=== PATIENT | female | born 1960 | race Caucasian/White ===

== ENCOUNTER 2017-02-14 23:25 | Emergency (ER) | payer OTHER ==
[2017-02-14 23:47] VITALS: TEMP 97.9; BMI 23.4
[2017-02-14 23:59] LABS: URINE APPEARANCE CLEAR; URINE BILIRUBIN NEGATIVE (NEGATIVE); URINE COLOR LTYELLOW; URINE GLUCOSE (UA) NEGATIVE (NEGATIVE); URINE KETONE NEGATIVE (NEGATIVE); URINE NITRITE NEGATIVE (NEGATIVE); URINE PROTEIN NEGATIVE (NEGATIVE); URINE UROBILINOGEN NEGATIVE E.U./dl (0.2-1.0)
[2017-02-15] LABS: URINE BLOOD 2+ (NEGATIVE)
[2017-02-15 00:01] LABS: URINE LEUK ESTERASE TRACE (NEGATIVE)
[2017-02-15 00:16] LABS: URINE MUCUS MANY; URINE RBC 14 /hpf (0-3); URINE WBC 3 /hpf (3-5)
[2017-02-15] MEDS ORDERED: CEPHALEXIN MONOHYDRATE 500 MG CAPSULE (UD) PO ONE ×2 (01:31→04:30)
[2017-02-15] MEDS ORDERED: PHENAZOPYRIDINE HCL 100 MG TABLET (FP) PO ONE ×2 (01:31→04:30)
--- NOTE | 2017-02-15 01:38 | PDOC ---
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 Patient states for the past 15 days experiencing burning, pain, and urinary frequency w/ associated bilateral back pain. Patient denies n/v/d, fever, CP, diff breathing , vaginal bleeding, discharge, or any other complaints at this time. Timing/Duration: reports: getting worse Quality: reports: moderate Abdominal Pain Onset Location: reports: suprapubic Pain Radiation: reports: back Activities at Onset: reports: no specific activity Treatment Prior to Arrive: worse with: analgesics, antacids, cold pack, heat, laxative, enema, other Aggravating Factors: worse with: None, Defecation, Eating, Emotional upset, Exertion, Rosa, Movement, Voiding, Change in position Alleviating Factors: worse with: None, Belching, Shallow Breathing, Defecation, Eating, Holding Breath, Passing Gas, Change in Position, Rest, Voiding, Vomiting Past History - Travel Traveled outside of the country in the last 30 days: No Close contact w/someone who was outside of country & ill: No - Past Medical History Allergies/Adverse Reactions: Allergies Allergy/AdvReac Type Severity Reaction Status Date / Time shellfish Allergy Unknown Uncoded 02/14/17 23:47 Home Medications: Ambulatory Orders Cephalexin Monohydrate [Keflex -] 500 mg PO BID #20 capsule 02/15/17 GI Disorders: Yes (status post bile duct stent for retained stone, in April 2012) Suicide Attempt (Hx): No - Surgical History Cholecystectomy: Yes (4 years ago) - Reproductive History Is Patient Now?: No - Psycho/Social/Smoking Cessation Hx Anxiety: No Suicidal Ideation: No Smoking Status: No Smoking History: Never smoked Have you smoked in the past 12 months: No Number of Cigarettes Smoked Daily: 0 Information on smoking cessation initiated: No Hx Alcohol Use: No Drug/Substance Use Hx: No Substance Use Type: None Hx Substance Use Treatment: No Abd/GI Specific PMHX - Complaint Specific PMHX Colitis: No Diverticulitis: No Gall Bladder Disease: No GERD: No Hepatitis: No Irritable Bowel Synd (IBS): No Pancreatitis: No GI Ulcer Disease: No Review of Systems - Review of Systems Able to Perform ROS?: Yes Is the patient limited Greenlandic proficient: Yes Constitutional: No: Chills, Fever Respiratory: No: Cough, Shortness of Breath, Stridor, Wheezing Cardiac (ROS): No: Chest Pain, Lightheadedness, Palpitations, Chest Tightness ABD/GI: Yes: Abdominal cramping (Lower abd-pelvic pain). No: Diarrhea, Nausea, Poor Appetite, Poor Fluid Intake, Vomiting : Yes: Burning, Dysuria. No: Discharge, Flank Pain, Hematuria Musculoskeletal: Yes: Back Pain All Other Systems: Reviewed and Negative *Physical Exam - Vital Signs Last Vital Signs Temp Pulse Resp BP Pulse Ox 97.9 F 82 20 119/76 98 02/14/17 23:45 02/14/17 23:45 02/14/17 23:45 02/14/17 23:45 02/14/17 23:45 - Physical Exam General Appearance: Yes: Nourished, Appropriately Dressed. No: Apparent Distress, Mild Distress, Moderate Distress, Severe Distress Respiratory/Chest: positive: Lungs Clear, Normal Breath Sounds. negative: Respiratory Distress, Accessory Muscle Use, Labored Respiration, Rapid RR Cardiovascular: positive: Regular Rhythm, Regular Rate. negative: Edema, JVD Gastrointestinal/Abdominal: positive: Normal Bowel Sounds, Tender, Soft, Tenderness (Lower abd- pelvic region w/o rebound, guarding or murphys sign.). negative: Distended, Guarding, Rebound Musculoskeletal: positive: Normal Inspection. negative: CVA Tenderness Extremity: positive: Normal Capillary Refill, Normal Inspection, Normal Range of Motion Integumentary: positive: Normal Color, Dry, Warm Neurologic: positive: bander and cellophaner machine helper II-XII NML intact, Fully Oriented, Alert, Normal Mood/ Affect, Motor Strength / ED Treatment Course - LABORATORY CBC & Chemistry Diagram: 02/15/17 01:43 02/15/17 01:43 - ADDITIONAL ORDERS Additional order review: Laboratory Results 02/14/17 23:47 Urine Color Ltyellow Urine Appearance Clear Urine pH 6.0 Ur Specific [place] 1.018 Urine Protein Negative Urine Glucose (UA) Negative Urine Ketones Negative Urine Blood 2+ H Urine Nitrite Negative Urine Bilirubin Negative Urine Urobilinogen Negative Ur Leukocyte Esterase Trace H Urine RBC 14 Urine WBC 3 Ur Epithelial Cells Rare Urine Mucus Many *DC/Admit/Observation/Transfer Diagnosis at time of Disposition: Urinary tract infection Qualifiers: Urinary tract infection type: urethritis Qualified Code(s): N34.2 - Other urethritis - Discharge Dispostion Disposition: HOME Condition at time of disposition: Stable Admit: No - Prescriptions Prescriptions: Cephalexin Monohydrate [Keflex -] 500 mg PO BID #20 capsule - Patient Instructions Printed Discharge Instructions: DI for Urinary Tract Infection (UTI) Additional Instructions: Dillan un seguimiento con osorio proveedor de atencin primaria esta semana para benjamin evaluacin ms detallada. Ken[place] los medicamentos segn lo prescrito. Se le thomas diagnosticado benjamin infeccin del tracto urinario. Karla kt agua, y pruebe el vaso lleno de jugo de arndano. Regresar si los sntomas empeoran o cualquier inquietud para benjamin evaluacin posterior. Follow up with your primary care provider this week for further evaluation. Take medications as prescribed. You have been diagnosed with urinary tract infection. Drink plenty water, and try glass full of cranberry juice. Return if symptoms worsen or any concerns for further evaluation. Print Language: GUATEMALAN
[2017-02-15 02:01] LABS: BASOPHIL 0.6 % (0-2.0); EOSINOPHIL 2.4 % (0-4.5); MCH 31.6 pg (25.7-33.7); MCHC 34.1 g/dl (32.0-36.0); MEAN CELL VOLUME 92.9 fl (80-96); MEAN PLT VOLUME 7.4 fl (7.5-11.1); NEUTROPHILS 57.4 % (42.8-82.8); PLATELET COUNT 269 K/MM3 (134-434); RDW 13.5 % (11.6-15.6)
[2017-02-15 02:13] LABS: ALBUMIN 4.1 g/dl (3.4-5.0); ALK PHOS 97 U/L (45-117); ANION GAP 9 (8-16); BILIRUBIN,TOTAL 0.4 mg/dL (0.2-1.0); CALCIUM 9.4 mg/dL (8.5-10.1); CO2 31 mmol/L (21-32); COCKROFT - GAULT 109.2335; CREATININE 0.5 mg/dL (0.55-1.02); GLUCOSE,RANDOM 84 mg/dL (74-106); SGOT/AST 17 U/L (15-37); SGPT/ALT 27 U/L (12-78); TOT PROT 7.4 g/dl (6.4-8.2)
[2017-02-15] MEDS ORDERED: CEPHALEXIN MONOHYDRATE 250 MG CAPSULE (FP) ONE (04:35)
[2017-02-15] MEDS ORDERED: PHENAZOPYRIDINE HCL 100 MG TABLET (FP) ONE (04:35)
[2017-02-15 04:44] VITALS: BP 120/74; PULSE 80
== END 2017-02-15 04:45 | disposition home or self-care (01) ==
LOC: JER 23:25
DX: N34.2 Other urethritis (principal)
CPT/HCPCS: 36415; 74176-TC; 80053; 81003; 81015; 85025; 87086; 99282-25

== ENCOUNTER 2017-04-05 18:42 | Emergency (ER) | payer OTHER ==
[2017-04-05 18:49] VITALS: BP 151/90; PULSE 72; TEMP 98; BMI 28.3
[2017-04-05 20:44] LABS: URINE APPEARANCE CLEAR; URINE BILIRUBIN NEGATIVE (NEGATIVE); URINE COLOR STRAW; URINE GLUCOSE (UA) NEGATIVE (NEGATIVE); URINE KETONE NEGATIVE (NEGATIVE); URINE NITRITE NEGATIVE (NEGATIVE); URINE PROTEIN NEGATIVE (NEGATIVE); URINE UROBILINOGEN NEGATIVE E.U./dl (0.2-1.0)
[2017-04-05 20:46] LABS: URINE BLOOD 1+ (NEGATIVE); URINE LEUK ESTERASE TRACE (NEGATIVE)
[2017-04-05 20:48] LABS: URINE MUCUS RARE; URINE RBC 3 /hpf (0-3); URINE WBC 4 /hpf (3-5)
[2017-04-05 21:13] LABS: BASOPHIL 0.7 % (0-2.0); EOSINOPHIL 1.4 % (0-4.5); MCH 31.6 pg (25.7-33.7); MCHC 33.1 g/dl (32.0-36.0); MEAN CELL VOLUME 95.5 fl (80-96); MEAN PLT VOLUME 7.3 fl (7.5-11.1); NEUTROPHILS 59.9 % (42.8-82.8); PLATELET COUNT 262 K/MM3 (134-434); RDW 14.1 % (11.6-15.6); WHITE BLOOD COUNT 5.4 K/mm3 (4.0-10.0)
--- NOTE | 2017-04-05 21:14 | PDOC ---
History of Present Illness <Rubi Lemos - Last Filed: 04/05/17 22:41> - History of Present Illness Initial Comments: 04/05/17 23:46 Patient is a 56 year old female with no significant medical hx who is presenting to the ED with complaint of increased urination. The patient states her increased frequency has been intermittent for the past two months. She also is complaining of pelvic pain and cold feet. The patient was here last month for the same complaint and discharged on Keflex for mild UTI. Patient also received an abdomen/pelvis CT at that time which was negative for abnormalities. She denies any hematuria, dysuria, vaginal bleeding, discharge, nausea, vomiting, fevers, chills, or diarrhea. History was obtained using a roadway technician phone. Surgical Hx: cholecystectomy, bile duct stent Allergies: shellfish <Sushila Edward - Last Filed: 04/05/17 23:55> - General Chief Complaint: Pain, Acute Stated Complaint: URINARY PROBLEM Time Seen by Provider: 04/05/17 19:00 Past History - Past Medical History GI Disorders: Yes (status post bile duct stent for retained stone, in April 2012) Suicide Attempt (Hx): No - Surgical History Cholecystectomy: Yes (4 years ago) - Psycho/Social/Smoking Cessation Hx Anxiety: No Suicidal Ideation: No Smoking Status: No Smoking History: Never smoked Have you smoked in the past 12 months: No Number of Cigarettes Smoked Daily: 0 Information on smoking cessation initiated: No Hx Alcohol Use: No Drug/Substance Use Hx: No Substance Use Type: None Hx Substance Use Treatment: No <Rubi Lemos - Last Filed: 04/05/17 22:41> <Sushila Edward - Last Filed: 04/05/17 23:55> - Past Medical History Allergies/Adverse Reactions: Allergies Allergy/AdvReac Type Severity Reaction Status Date / Time shellfish Allergy Unknown Uncoded 04/05/17 18:46 Home Medications: Ambulatory Orders Nitrofurantoin Macrocrystal [Macrodantin -] 100 mg PO BID #14 capsule 04/05/17 Abd/GI Specific PMHX - Complaint Specific PMHX Colitis: No Diverticulitis: No Gall Bladder Disease: No GERD: No Hepatitis: No Irritable Bowel Synd (IBS): No Pancreatitis: No GI Ulcer Disease: No <Rubi Lemos - Last Filed: 04/05/17 22:41> Review of Systems - Review of Systems Comments:: 04/05/17 23:50 CONSTITUTIONAL: Absent: fever, chills, diaphoresis, generalized weakness, malaise, loss of appetite HEENT: Absent: rhinorrhea, nasal congestion, throat pain, throat swelling, difficulty swallowing, mouth swelling, ear pain, eye pain, visual changes CARDIOVASCULAR: Absent: chest pain, syncope, palpitations, irregular heart rate, lightheadedness , peripheral edema RESPIRATORY: Absent: cough, shortness of breath, dyspnea with exertion, orthopnea, wheezing, stridor, hemoptysis GASTROINTESTINAL: Present: pelvic pain Absent: abdominal distension, nausea, vomiting, diarrhea, constipation, melena, hematochezia GENITOURINARY: Present: frequency Absent: dysuria, urgency, hesitancy, hematuria, flank pain, genital pain MUSCULOSKELETAL: Present: cold feet Absent: myalgia, arthralgia, joint swelling SKIN: Absent: rash, itching, pallor HEMATOLOGIC/IMMUNOLOGIC: Absent: easy bleeding, easy bruising, lymphadenopathy, frequent infections ENDOCRINE: Absent: unexplained weight gain, unexplained weight loss, heat intolerance, cold intolerance NEUROLOGIC: Absent: headache, focal weakness or paresthesia, dizziness, unsteady gait, seizure, mental status changes, bladder or bowel incontinence. PSYCHIATRIC: Absent: anxiety, depression, suicidal or homicidal ideation, hallucinations <Sushila Edward - Last Filed: 04/05/17 23:55> *Physical Exam - Vital Signs Last Vital Signs Temp Pulse Resp BP Pulse Ox 98.0 F 72 18 151/90 100 04/05/17 18:46 04/05/17 18:46 04/05/17 18:46 04/05/17 18:46 04/05/17 18:46 <Rubi Lemos - Last Filed: 04/05/17 22:41> - Vital Signs Last Vital Signs Temp Pulse Resp BP Pulse Ox 98.0 F 72 18 151/90 100 04/05/17 18:46 04/05/17 18:46 04/05/17 18:46 04/05/17 18:46 04/05/17 18:46 - Physical Exam Comments: 04/05/17 23:51 GENERAL: Well developed, well nourished. Awake and alert. No acute distress. HEENT: Normocephalic, atraumatic. PERRLA, EOMI. No conjunctival pallor. Sclera are non- icteric. Moist mucous membranes. Oropharynx is clear. NECK: Supple. Full ROM. No JVD. Carotid pulses 2+ and symmetric, without bruits. No thyromegaly. No lymphadenopathy. CARDIOVASCULAR: Regular rate and rhythm. No murmurs, rubs, or gallops. Distal pulses are 2+ and symmetric. PULMONARY: No evidence of respiratory distress. Lungs clear to auscultation bilaterally. No wheezing, rales or rhonchi. ABDOMINAL: Soft. Non-tender. Non-distended. No rebound or guarding. No organomegaly. Normoactive bowel sounds. MUSCULOSKELETAL: Normal range of motion at all joints. No bony deformities or tenderness. No CVA tenderness. EXTREMITIES: No cyanosis. No clubbing. No edema. No calf tenderness. SKIN: Warm and dry. Normal capillary refill. No rashes. No jaundice. NEUROLOGICAL: Alert, awake, appropriate. Cranial nerves 2-12 intact. Normal speech. Gait is normal without ataxia. PSYCHIATRIC: Cooperative. Good eye contact. Appropriate mood and affect. <Sushila Edward - Last Filed: 04/05/17 23:55> ED Treatment Course - LABORATORY CBC & Chemistry Diagram: 04/05/17 20:44 04/05/17 20:44 - ADDITIONAL ORDERS Additional order review: Laboratory Results 04/05/17 20:37 Urine Color Straw Urine Appearance Clear Urine pH 6.0 Urine Protein Negative Urine Glucose (UA) Negative Urine Ketones Negative Urine Blood 1+ H Urine Nitrite Negative Urine Bilirubin Negative Urine Urobilinogen Negative Ur Leukocyte Esterase Trace H Urine RBC 3 Urine WBC 4 Ur Epithelial Cells Rare Urine Mucus Rare <Rubi Lemos - Last Filed: 04/05/17 22:41> - LABORATORY CBC & Chemistry Diagram: 04/05/17 20:44 04/05/17 20:44 - ADDITIONAL ORDERS Additional order review: Laboratory Results 04/05/17 04/05/17 20:44 20:37 Sodium 141 Potassium 3.4 L Chloride 104 Carbon Dioxide 30 Anion Gap 7 L BUN 18 D Creatinine 0.5 L Creat Clearance w eGFR > 60 Random Glucose 86 Calcium 9.6 Total Bilirubin 0.3 D AST 18 ALT 27 Alkaline Phosphatase 86 Total Protein 7.3 Albumin 4.1 Urine Color Straw Urine Appearance Clear Urine pH 6.0 Ur Specific [place] <= 1.005 Urine Protein Negative Urine Glucose (UA) Negative Urine Ketones Negative Urine Blood 1+ H Urine Nitrite Negative Urine Bilirubin Negative Urine Urobilinogen Negative Ur Leukocyte Esterase Trace H Urine RBC 3 Urine WBC 4 Ur Epithelial Cells Rare Urine Mucus Rare 04/05/17 20:44 RBC 4.05 MCV 95.5 MCHC 33.1 RDW 14.1 MPV 7.3 L Neutrophils % 59.9 Lymphocytes % 32.8 Monocytes % 5.2 Eosinophils % 1.4 Basophils % 0.7 - RADIOLOGY Radiograph Interpretation: 04/05/17 23:54 Etl Lead: (lavon) Report Date: 04/05/2017 21:35:00 Report Status: Preliminary Begin of Report Content Referring Physician: Rubi Lemos Patient Name: Alis Mariee THIS IS A PRELIMINARY REPORT FROM IMAGING PATIENT EDUCATOR IMAGES: 31 EXAM DATE AND TIME: 2017-04-05 21:35:46.0 EXAM: ULTRASOUND PELVIS, COMPLETE AND TRANSVAGINAL ULTRASOUND Ovaries not seen, probably obscured by prominent peristalsing bowel loops. Torsion cannot be excluded; consider follow-up if there is continued clinical concern. No obvious adnexal masses. No free fluid in cul-de-sac. 1.0 cm uterine fibroid. Endometrial stripe complex 3 mm thick. Trace fluid in endometrial cavity. Bladder not well seen. THIS DOCUMENT HAS BEEN ELECTRONICALLY SIGNED Desiree Lomeli M.D. 04/05/2017 22:40 YVETTE Clark Please call Imaging Machine Applicator Cementer [phone] ([phone]) with questions. End of Report Content - Medications Given in the ED: ED Medications Discontinued Medications Generic Name Dose Route Start Last Admin Trade Name Freq PRN Reason Stop Dose Admin Nitrofurantoin Macrocrystals 100 mg 04/05/17 22:45 04/05/17 22:46 Macrodantin - PO 100 mg ONCE MARILYN Administration Phenazopyridine HCl 200 mg 04/05/17 22:41 04/05/17 22:46 Pyridium - PO 04/05/17 22:42 200 mg ONCE ONE Administration <Sushila Edward - Last Filed: 04/05/17 23:55> *DC/Admit/Observation/Transfer <Rubi Lemos - Last Filed: 04/05/17 22:41> - Attestations Scribe Attestion: 04/05/17 23:52 Documentation prepared by Sushila Edward, acting as medical screener for Rubi Lemos MD <Sushila Edward - Last Filed: 04/05/17 23:55> Diagnosis at time of Disposition: Dysuria - Discharge Dispostion Disposition: HOME Condition at time of disposition: Stable - Prescriptions Prescriptions: Nitrofurantoin Macrocrystal [Macrodantin -] 100 mg PO BID #14 capsule - Referrals Referrals: Claudia Oliveros MD [Staff Physician] - - Patient Instructions Printed Discharge Instructions: DI for Dysuria -- Adult Additional Instructions: please coal picker your antibiotics at your pharmacy follow up with your infant caregiver Print Language: UZBEK
[2017-04-05 21:36] LABS: ALBUMIN 4.1 g/dl (3.4-5.0); ANION GAP 7 (8-16); BILIRUBIN,TOTAL 0.3 mg/dL (0.2-1.0); CALCIUM 9.6 mg/dL (8.5-10.1); CO2 30 mmol/L (21-32); COCKROFT - GAULT 131.9965; CREATININE 0.5 mg/dL (0.55-1.02); GLUCOSE,RANDOM 86 mg/dL (74-106); SGOT/AST 18 U/L (15-37); SGPT/ALT 27 U/L (12-78); TOT PROT 7.3 g/dl (6.4-8.2)
[2017-04-05 21:37] LABS: ALK PHOS 86 U/L (45-117)
[2017-04-05] MEDS ORDERED: PHENAZOPYRIDINE HCL 100 MG TABLET (FP) PO ONE (22:41)
[2017-04-05] MEDS ORDERED: PHENAZOPYRIDINE HCL 100 MG TABLET (FP) ONE (22:43)
[2017-04-05] MEDS ORDERED: NITROFURANTOIN MACROCRYSTAL 50 MG CAPSULE (FP) ONE (22:43)
[2017-04-05] MEDS ORDERED: NITROFURANTOIN MACROCRYSTAL 50 MG CAPSULE (FP) PO SCH (22:45)
== END 2017-04-05 22:54 | disposition home or self-care (01) ==
LOC: JER 18:42
DX: R30.0 Dysuria (principal)
CPT/HCPCS: 36415; 76830-TC; 80053; 81003; 81015; 85025; 87086; 99284-25

== ENCOUNTER 2017-07-10 01:21 | Emergency (ER) | payer OTHER ==
[2017-07-10 01:52] VITALS: BP 146/96; PULSE 72; TEMP 98.4; BMI 25.9
[2017-07-10 02:49] LABS: URINE APPEARANCE CLEAR; URINE BILIRUBIN NEGATIVE (NEGATIVE); URINE BLOOD TRACE-LYSE (NEGATIVE); URINE COLOR LT. YELLOW; URINE GLUCOSE (UA) NEGATIVE (NEGATIVE); URINE KETONE NEGATIVE (NEGATIVE); URINE NITRITE NEGATIVE (NEGATIVE); URINE PROTEIN NEGATIVE (NEGATIVE); URINE UROBILINOGEN 0.2 mg/dL (0.2-1.0)
--- NOTE | 2017-07-10 02:53 | PDOC ---
History of Present Illness - General History Source: Patient Exam Limitations: No Limitations - History of Present Illness Initial Comments: 07/10/17 04:15 The patient is a 57 year old female, with no significant past medical history, who presents to the emergency room complaining of 2 days of dysuria, urinary frequency and diffuse lower abdominal cramping. She notes that these symptoms are similar to those she's experienced in the past when she had a UTI. Denies fever, chills, nausea, vomiting. Denies flank pain. Allergies: shellfish <George Wolfssica - Last Filed: 07/10/17 04:15> <Juliane Hobbs - Last Filed: 07/10/17 06:10> - General Chief Complaint: Pain Stated Complaint: ABD PAIN Past History <Stephanie Wolf - Last Filed: 07/10/17 04:15> - Past Medical History GI Disorders: Yes (status post bile duct stent for retained stone, in April 2012) Suicide Attempt (Hx): No - Surgical History Cholecystectomy: Yes (4 years ago) - Psycho/Social/Smoking Cessation Hx Anxiety: No Suicidal Ideation: No Smoking Status: No Smoking History: Never smoked Have you smoked in the past 12 months: No Number of Cigarettes Smoked Daily: 0 Hx Alcohol Use: No Drug/Substance Use Hx: No Substance Use Type: None Hx Substance Use Treatment: No <Juliane Hobbs - Last Filed: 07/10/17 06:10> - Past Medical History Allergies/Adverse Reactions: Allergies Allergy/AdvReac Type Severity Reaction Status Date / Time shellfish derived Allergy Unknown Verified 07/10/17 04:15 shellfish Allergy Unknown Uncoded 07/10/17 01:29 Home Medications: Ambulatory Orders Ibuprofen [Motrin -] 600 mg PO TID #30 tablet 07/10/17 Nitrofurantoin Monohyd/M-Cryst [Macrobid -] 100 mg PO BID #14 capsule 07/10/17 Review of Systems - Review of Systems Able to Perform ROS?: Yes Comments:: 07/10/17 04:25 GENERAL/CONSTITUTIONAL: No fever or chills. No weakness. HEAD, EYES, EARS, NOSE AND THROAT: No change in vision. No ear pain or discharge. No sore throat. CARDIOVASCULAR: No chest pain or shortness of breath. RESPIRATORY: No cough, wheezing, or hemoptysis. GASTROINTESTINAL: +diffuse lower abdominal cramping. No nausea, vomiting, diarrhea or constipation. GENITOURINARY: +dysuria, +frequency MUSCULOSKELETAL: No joint or muscle swelling or pain. No neck or back pain. SKIN: No rash NEUROLOGIC: No headache, vertigo, loss of consciousness, or change in strength/ sensation. ENDOCRINE: No increased thirst. No abnormal weight change. HEMATOLOGIC/LYMPHATIC: No anemia, easy bleeding, or history of blood clots. ALLERGIC/IMMUNOLOGIC: No hives or skin allergy. <Stephanie Wolf - Last Filed: 07/10/17 04:15> *Physical Exam - Vital Signs Last Vital Signs Temp Pulse Resp BP Pulse Ox 98.4 F 72 18 146/96 99 07/10/17 01:07/10/17 01:07/10/17 01:07/10/17 01:07/10/17 01:26 - Physical Exam Comments: 07/10/17 04:25 GENERAL: Awake, alert, and fully oriented, in no acute distress LUNGS: Breath sounds equal, clear to auscultation bilaterally. No wheezes, and no crackles HEART: Regular rate and rhythm, normal S1 and S2, no murmurs, rubs or gallops ABDOMEN: +minimal suprapubic tenderness. No flank pain. Soft, nontender, normoactive bowel sounds. No guarding, no rebound. No masses EXTREMITIES: Normal range of motion, no edema. No clubbing or cyanosis. No cords, erythema, or tenderness NEUROLOGICAL: Cranial nerves II through XII grossly intact. Normal speech, normal gait SKIN: Warm, Dry, normal turgor, no rashes or lesions noted. <Stephanie Wolf - Last Filed: 07/10/17 04:15> - Vital Signs Last Vital Signs Temp Pulse Resp BP Pulse Ox 98.4 F 72 18 146/96 99 07/10/17 01:07/10/17 01:07/10/17 01:07/10/17 01:07/10/17 01:26 <Juliane Hobbs - Last Filed: 07/10/17 06:10> ED Treatment Course - ADDITIONAL ORDERS Additional order review: Laboratory Results 07/10/17 02:40 Urine Color Lt. yellow Urine Appearance Clear Urine pH 7.0 Urine Protein Negative Urine Glucose (UA) Negative Urine Ketones Negative Urine Blood Trace-lyse Urine Nitrite Negative Urine Bilirubin Negative Urine Urobilinogen 0.2 Ur Leukocyte Esterase 1+ H Urine RBC 2 Urine WBC 6 Ur Epithelial Cells Rare Urine Bacteria Rare Urine Mucus Rare <Stephanie Wolf - Last Filed: 07/10/17 04:15> Medical Decision Making - Medical Decision Making 07/10/17 06:09 Pt comes with a UTI; she has had this type of dysuria before. SHe was treated with macrobid and pyridium in the ER; home with macrobid and motrin. Follow with PMD. <Juliane Hobbs - Last Filed: 07/10/17 06:10> *DC/Admit/Observation/Transfer - Attestations Scribe Attestion: 07/10/17 04:26 Documentation prepared by EMMANUEL Alba, acting as medical assembly for Juliane Hobbs MD. <Stephanie Wolf - Last Filed: 07/10/17 04:15> - Discharge Dispostion Admit: No <Juliane Hobbs - Last Filed: 07/10/17 06:10> Diagnosis at time of Disposition: Urinary tract infection - Discharge Dispostion Disposition: HOME Condition at time of disposition: Stable - Prescriptions Prescriptions: Nitrofurantoin Monohyd/M-Cryst [Macrobid -] 100 mg PO BID #14 capsule Ibuprofen [Motrin -] 600 mg PO TID #30 tablet - Referrals - Patient Instructions Printed Discharge Instructions: Urinary Tract Infection Print Language: VENEZUELAN
[2017-07-10 02:57] LABS: URINE LEUK ESTERASE 1+ (NEGATIVE)
[2017-07-10 03:06] LABS: URINE BACTERIA RARE /hpf (NONE SEEN); URINE MUCUS RARE; URINE RBC 2 /hpf (0-3); URINE WBC 6 /hpf (3-5)
[2017-07-10] MEDS ORDERED: PHENAZOPYRIDINE HCL 100 MG TABLET (FP) PO ONE (04:11)
[2017-07-10] MEDS ORDERED: NITROFURANTOIN MACROCRYSTAL 50 MG CAPSULE (FP) PO ONE (04:15)
[2017-07-10] MEDS ORDERED: NITROFURANTOIN MACROCRYSTAL 50 MG CAPSULE (FP) PO SCH (04:15)
== END 2017-07-10 04:17 | disposition home or self-care (01) ==
LOC: JER 01:21
DX: N39.0 Urinary tract infection, site not specified (principal)
CPT/HCPCS: 81003; 81015; 87086; 99282-25

== ENCOUNTER 2018-04-10 20:10 | Emergency (ER) | payer OTHER ==
[2018-04-10 20:24] VITALS: BP 163/98; PULSE 70; TEMP 98.5; BMI 26.4
[2018-04-10 20:58] LABS: URINE APPEARANCE CLEAR; URINE BILIRUBIN NEGATIVE (<2.0 mg/dL); URINE BLOOD 1+ (NEGATIVE); URINE COLOR COLORLESS; URINE GLUCOSE (UA) NEGATIVE (NEGATIVE); URINE KETONE NEGATIVE (NEGATIVE); URINE LEUK ESTERASE 1+ (NEGATIVE); URINE NITRITE NEGATIVE (NEGATIVE); URINE PROTEIN NEGATIVE (NEGATIVE); URINE UROBILINOGEN NEGATIVE mg/dL (0.2-1.0)
[2018-04-10 21:05] LABS: EPI CELLS RARE /HPF (FEW); URINE BACTERIA RARE /hpf (NONE SEEN)
--- NOTE | 2018-04-10 21:07 | PDOC ---
History of Present Illness - General Chief Complaint: Urinary Problem Stated Complaint: UTI Time Seen by Provider: 04/10/18 20:24 History Source: Patient Exam Limitations: No Limitations - History of Present Illness Initial Comments: 04/10/18 21:27 Patient is a 57-year-old female who presents emergency department stating she has a urinary tract infection. Patient states she feels burning when she eats and pain when she peaceful last 2 days. States she is also going more frequently. Denies hematuria. States she has a little back pain as well. Denies fevers, chills, nausea, vomiting and diarrhea. Past History - Travel Traveled outside of the country in the last 30 days: No Close contact w/someone who was outside of country & ill: No - Past Medical History Allergies/Adverse Reactions: Allergies Allergy/AdvReac Type Severity Reaction Status Date / Time shellfish derived Allergy Unknown Verified 07/10/17 04:15 shellfish Allergy Unknown Uncoded 07/10/17 01:29 Home Medications: Ambulatory Orders Cephalexin Monohydrate [Keflex -] 500 mg PO BID #14 capsule 04/10/18 Ibuprofen [Motrin -] 600 mg PO TID #21 tablet 04/10/18 GI Disorders: Yes (status post bile duct stent for retained stone, in April 2012) - Surgical History Cholecystectomy: Yes (4 years ago) - Suicide/Smoking/Psychosocial Hx Smoking Status: No Smoking History: Never smoked Have you smoked in the past 12 months: No Number of Cigarettes Smoked Daily: 0 Hx Alcohol Use: No Drug/Substance Use Hx: No Substance Use Type: None Hx Substance Use Treatment: No Review of Systems - Review of Systems Able to Perform ROS?: Yes Comments:: 04/10/18 21:28 CONSTITUTIONAL: Absent: fever, chills, diaphoresis, generalized weakness, malaise, loss of appetite GASTROINTESTINAL: Present: abdominal pain Absent: abdominal pain, abdominal distension, nausea, vomiting, diarrhea, constipation, melena, hematochezia GENITOURINARY: Present: dysuria, frequency, urgency Absent: hesitancy, hematuria, flank pain, genital pain MUSCULOSKELETAL: Absent: myalgia, arthralgia, joint swelling NEUROLOGIC: Absent: headache, focal weakness or paresthesias, dizziness, unsteady gait, seizure, mental status changes, bladder or bowel incontinence Is the patient limited Tuvaluan proficient: No *Physical Exam - Vital Signs Last Vital Signs Temp Pulse Resp BP Pulse Ox 98.5 F 70 20 163/98 97 04/10/18 20:22 04/10/18 20:22 04/10/18 20:22 04/10/18 20:22 04/10/18 20:22 - Physical Exam Comments: 04/10/18 21:29 GENERAL: Well developed, well nourished. Awake and alert. No acute distress. NECK: Supple. Full ROM. No JVD. Carotid pulses 2+ and symmetric, without bruits. No thyromegaly. No lymphadenopathy. ABDOMINAL: TTP of the suprapubic region. Soft. Non-distended. No rebound or guarding. No organomegaly. Normoactive bowel sounds. CVA tenderness to the R. SKIN: Warm and dry. Normal capillary refill. No rashes. No jaundice. NEUROLOGICAL: Alert, awake, appropriate. Cranial nerves 2-12 intact. No deficits to light touch and temperature in face, upper extremities and lower extremities. No motor deficits in the in face, upper extremities and lower extremities. Normoreflexic in the upper and lower extremities. Normal speech. Toes are down- going bilaterally. Gait is normal without ataxia. ED Treatment Course - ADDITIONAL ORDERS Additional order review: Laboratory Results 04/10/18 20:30 Urine Color Colorless Urine Appearance Clear Urine pH 7.0 Ur Specific [place] 1.005 Urine Protein Negative Urine Glucose (UA) Negative Urine Ketones Negative Urine Blood 1+ H Urine Nitrite Negative Urine Bilirubin Negative Urine Urobilinogen Negative Ur Leukocyte Esterase 1+ H Urine WBC (Auto) 6 Urine RBC (Auto) 1 Ur Epithelial Cells Rare Urine Bacteria Rare Medical Decision Making - Medical Decision Making 04/10/18 21:30 Patient is a 57-year-old female who presents emergency Department with 2 days of urinary frequency, urgency and dysuria. Patient with slight CVA tenderness on the right. No fevers, nausea or vomiting. UA with +1 leukocytes. We will treat given the symptoms at this time. Return precautions given. Patient her symptoms discharge instructions and all questions were answered. *DC/Admit/Observation/Transfer Diagnosis at time of Disposition: Urinary tract infection Qualifiers: Urinary tract infection type: acute cystitis Hematuria presence: with hematuria Qualified Code(s): N30.01 - Acute cystitis with hematuria - Discharge Dispostion Disposition: HOME Condition at time of disposition: Good Decision to Admit order: No - Prescriptions Prescriptions: Cephalexin Monohydrate [Keflex -] 500 mg PO BID #14 capsule Ibuprofen [Motrin -] 600 mg PO TID #21 tablet - Referrals Referrals: Vitor Payne MD [Staff Physician] - - Patient Instructions Printed Discharge Instructions: DI for Urinary Tract Infection (UTI) Additional Instructions: You have a urinary tract infection. This caused by bacteria. Please drink plenty of fluids. Take your antibiotics as prescribed. Finish the entire dose even if you feel better. You may take Tylenol or Motrin as needed for pain Please follow up with your primary care doctor this week. Return to the emergency department if you have fevers, chills, nausea, vomiting , back pain, or have any changes in your symptoms. Usted tiene benjamin infeccin del tracto urinario. [place] causado por bacterias. Por favor sonia muchos lquidos. Wade farideh antibiticos segn lo prescrito. Termine toda la dosis incluso si se siente mejor. Puede connor Tylenol o Motrin segn sea necesario para el dolor Por favor, gosia un seguimiento con osorio mdico de atencin primaria esta semana. Regrese al departamento de emergencias si tiene fiebre, escalofros, nuseas, vmitos, dolor de espalda o tiene algn cambio en farideh sntomas. Print Language: LIBERIAN - Post Discharge Activity
[2018-04-10] MEDS ORDERED: CEPHALEXIN MONOHYDRATE 500 MG CAPSULE (UD) PO ONE (21:26)
[2018-04-10] MEDS ORDERED: CEPHALEXIN MONOHYDRATE 500 MG CAPSULE (UD) ONE (21:29)
== END 2018-04-10 21:35 | disposition home or self-care (01) ==
LOC: JERFT 20:10
DX: N30.01 Acute cystitis with hematuria (principal)
CPT/HCPCS: 81003; 81015; 87086; 99281-25

== ENCOUNTER 2018-08-01 07:42 | Emergency (ER) | payer OTHER ==
[2018-08-01 08:08] VITALS: BMI 26.4
--- NOTE | 2018-08-01 08:22 | PDOC ---
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 58 year old female with PMH HTN presents to ED for headache x2 weeks. She states her headache is located to her occiput, radiates to her neck, no aggravating factors, alleviated by motrin, intermittent, slowly progressing, feels similar to prior headaches. She states she gets headaches at least once a month. She denies fever, chills, nausea, vomiting, diarrhea, abdominal pain. Her pain is associated with bilateral arm/hand numbness and tingling, shocks down bilateral arms, phonophobia, photophobia, generalized weakness, upper back pain. She also complains of chest pain x2 weeks, occurring while walking, left sided, non-radiating, aggravated by exertion, relieved by resting, intermittent. She states her chest pain is associated with SOB. She also complains of cough, productive of "white saliva". She denies recent steroid use , history of malignancy, weight loss, IV drug use. PCP - none Allergies - NKDA Past History - Past Medical History Allergies/Adverse Reactions: Allergies Allergy/AdvReac Type Severity Reaction Status Date / Time shellfish derived Allergy Unknown Verified 07/10/17 04:15 shellfish Allergy Unknown Uncoded 07/10/17 01:29 Home Medications: Ambulatory Orders Azithromycin [Zithromax 250mg Tablets -] 250 mg PO UTDICT #6 tab 08/01/18 Ibuprofen [Motrin -] 600 mg PO PRN 08/01/18 COPD: No DVT: No Dementia: No GI Disorders: Yes (status post bile duct stent for retained stone, in April 2012) HTN: Yes Hypercholesterolemia: Yes (??) - Surgical History Cholecystectomy: Yes (4 years ago) - Suicide/Smoking/Psychosocial Hx Smoking Status: No Smoking History: Never smoked Have you smoked in the past 12 months: No Number of Cigarettes Smoked Daily: 0 Information on smoking cessation initiated: No Hx Alcohol Use: No Drug/Substance Use Hx: No Substance Use Type: None Hx Substance Use Treatment: No Review of Systems - Review of Systems Able to Perform ROS?: Yes Comments:: 08/01/18 09:27 General: admits to generalized weaknes. denies fever, chills, night sweats. HEENT: denies sore throat, rhinorrhea, ear pain. Heart: admits to chest pain. denies palpitations, syncope, lower extremity swelling, diaphoresis. Respiratory: admits to cough, SOB. denies sputum production, hematemesis. Abdomen: denies abdominal pain, nausea, vomiting, diarrhea, constipation, blood in stool. : denies dysuria, increased urinary frequency, hematuria, urinary incontinence , flank pain. Back: admits to back pain. Musculoskeletal: admits to bilateral arm pain, back pain. Neurological: admits to headache, photophobia, phonophobia. denies dizziness, numbness, tingling, weakness. Skin: denies rash, laceration, abrasion. *Physical Exam - Vital Signs Last Vital Signs Temp Pulse Resp BP Pulse Ox 99.4 F 75 16 138/84 98 08/01/18 08:05 08/01/18 08:05 08/01/18 08:05 08/01/18 08:05 08/01/18 08:05 - Physical Exam Comments: 08/01/18 09:29 Constitutional: Well-nourished, Well-developed, appearing stated age. HEENT: head is normocephalic, atraumatic. EOMI. PERRLA. Neck: supple. Full ROM. Spurling positive bilaterally. Lhermitte negative. decreased rotational movement secondary to pain. tenderness to palpation of bilateral lateral neck. Heart: regular rhythm. no murmurs, rubs or gallops. Lungs: clear to auscultation bilaterally. no crackles, rhonchi or wheezing. no stridor. Abdomen: soft, nontender. normal bowel sounds. no rebound, guarding, masses. Extremities: Peripheral pulses intact and equal. No lower extremity edema. full ROM to bilateral arm. Back: tenderness to palpation of bilateral upper back, scapular area and trapezium. Neurological: Alert. Oriented to person and place, not oriented to year (stated 1917 then 1987). CN2-12 intact. full video rental clerk strength bilaterally. decreased strength to upper extremities against resistance. decreased strength to lower extremities against resistance, right>left. Full sensation all extremities and bilateral face. Finger to nose normal. Gait: able to walk unassisted, will lean to the left, appears slightly off-balance. Psych: awake, alert, oriented x2 (see above). Follows commands. Pleasant. Answers questions appropriately, but slow to respond, requires further clarification multiple times. Heart Score/ECG Review - ECG Impressions Comment:: 08/01/18 09:49 Rate 73, regular rhythm, slight left axis, non-specific ST changes. ED Treatment Course - LABORATORY CBC & Chemistry Diagram: 08/01/18 09:35 08/01/18 09:35 Medical Decision Making - Medical Decision Making 08/01/18 09:44 58 year old female with PMH HTN presents to ED for headache x2 weeks. She states her headache is located to her occiput, radiates to her neck, no aggravating factors, alleviated by motrin, intermittent, slowly progressing, feels similar to prior headaches. She states she gets headaches at least once a month. She denies fever, chills, nausea, vomiting, diarrhea, abdominal pain. Her pain is associated with bilateral arm/hand numbness and tingling, shocks down bilateral arms, phonophobia, photophobia, generalized weakness, upper back pain. She also complains of chest pain x2 weeks, occurring while walking, left sided, non-radiating, aggravated by exertion, relieved by resting, intermittent. She states her chest pain is associated with SOB. She also complains of cough, productive of "white saliva". She denies recent steroid use , history of malignancy, weight loss, IV drug use. Initial Vital Signs Temp Pulse Resp BP Pulse Ox 99.4 F 75 16 138/84 98 08/01/18 08:05 08/01/18 08:05 08/01/18 08:05 08/01/18 08:05 08/01/18 08:05 Afebrile. No tachycardia. No hypotension. No hypoxia. Concern for cervical radiculopathy, arm pain reproducible with spurling positive bilaterally, arm pain described as "shock" like. Concern for neck muscle sprain, pain reproducible with rotation and palpation. Less likely, but also concerned for: cervical fracture, cervical cord compression. Pending CT neck and CT head. Concern for ACS, chest pain, exertional, hx HTN, lack of follow up care. Pending EKG, cardiac enzymes, CMP. Concern for urinary tract infection, slightly altered mental status, appears off balance. Pending UA/UC. -- 08/01/18 13:27 Cardiac - Cardiac enzymes negative - EKG non-specific ST changes Pulmonary - CXR negative for infiltration, pulmonary congestion, rib fracture. - Will DC with Z-pack prescription. Neuro - CT head: no evidence of intracranial bleeding, no evidence of hydrocephalus. left temporal calcification identified, similar to prior CT. - CT neck: no evidence of fracture. General - CBC normal, no leukocytosis, no anemia - CMP normal. Urinary - UA negative for infection Pt will be discharged with PCP referral, follow up instructions and strict return precautions. I explained the importance of attending the PCP appointment made for her with Dr. Martin, she expressed she understood. *DC/Admit/Observation/Transfer Diagnosis at time of Disposition: Headache, Chest pain - Discharge Dispostion Disposition: HOME Condition at time of disposition: Stable Decision to Admit order: No - Prescriptions Prescriptions: Azithromycin [Zithromax 250mg Tablets -] 250 mg PO UTDICT #6 tab - Referrals Referrals: Arlen Plasencia MD [Primary Care Provider] - - Patient Instructions Printed Discharge Instructions: DI for Cough -- Adult, DI for Shortness of Breath, DI for Headache, DI for Cervical Radiculopathy Additional Instructions: You were seen today in the Emergency Department at [facility]. Your head CT revealed: no evidence of bleeding or fracture. Your neck CT revealed: no evidence of fracture. You labwork was normal. Your urine analysis was normal. You do not have a urinary tract infection. Your EKG was normal. Your Chest X-ray was normal. I have written a prescription for an antibiotic to treat your cough. Pick it up from your pharmacy today and take as directed. Do not miss any pills. Follow up with your primary care doctor provided for you, Dr. Martin. Go to the appointment made for you on 08/04/18 at 10:15 AM. Do not miss this appointment. Return to the Emergency Department for chest pain, shortness of breath, lightheadedness like you may pass out, dizziness like the room is spinning, passing out, ripping back pain, weakness of your arms or legs, or any new, worsening or concerning symptoms. Usted fue visto hoy en el Departamento de Emergencia en [facility]. La TC de osorio leidy revel: no hay evidencia de sangrado o fractura. Osorio CT del isela revel: no hay evidencia de fractura. Tu trabajo de laboratorio fue normal. Osorio anlisis de orina fue normal. Usted no tiene benjamin infeccin del tracto urinario. Tu EKG fue normal. Osorio radiografa de trax fue normal. He escrito benjamin receta para un antibitico para tratar la tos. Recgelo de osorio farmacia hoy y tome segn las indicaciones. No te pierdas ninguna pastilla. Dillan un seguimiento con osorio mdico de atencin primaria provisto para usted, el Dr. Martin. Vaya a la zaira que le hicieron el 04/08/18 a las 10:15 a.m. No te pierdas esta zaira. Regrese al servicio de urgencias por dolor en el pecho, dificultad para respirar , aturdimiento nella si se desmaya, mareo nella si la habitacin estuviera girando , desmayndose, desgarrando el dolor, debilidad de farideh brazos o piernas, o cualquier nuevo empeoramiento o sntomas preocupantes. Print Language: SWEDISH - Post Discharge Activity Forms/Work/School Notes: Back to Work
--- NOTE | 2018-08-01 09:18 | PDOC ---
Attending Attestation - Resident Resident Name: Sandra Hernandez - ED Attending Attestation I have performed the following: I have examined & evaluated the patient, The case was reviewed & discussed with the resident, I agree w/resident's findings & plan, Exceptions are as noted - HPI HPI: 08/01/18 09:28 Ms Merritt is a 58 yo F who presents to the ER with multiple complaints She reports a cough which is triggered when she is exposed to the cold, white sputum No fevers or chills She also reports occipital headache and posterior neck pain which is associated with bilateral upper extremity pain/ and a feeling that her had is being "squeezed" No weakness with arm movement - Physicial Exam PE: 08/01/18 09:48 GENERAL: The patient is in no acute distress, coughing during examination HEAD: Normal EYES: PERRLA, EOMI, sclera anicteric, conjunctiva clear. ENT: Ears normal, nares patent, oropharynx clear without exudates. Moist mucous membranes. NECK: Normal range of motion, supple without lymphadenopathy, JVD, or masses. LUNGS: Breath sounds equal, clear to auscultation bilaterally. HEART:Regular rate and rhythm, normal S1 and S2 without murmur, rub or gallop. ABDOMEN: Soft, nontender, normoactive bowel sounds. No guarding, no rebound. No masses palpable. EXTREMITIES: Normal range of motion, no edema. NEUROLOGICAL: Cranial nerves II through XII grossly intact. Normal speech. No focal neurological deficits. MUSCULOSKELETAL: Back non-tender to palpation, no CVA tenderness SKIN: Warm, Dry, normal turgor, no rashes or lesions noted. - Medical Decision Making 08/01/18 09:49 EKG: NSR, rate of 73bpm, axis nml, intervals are nml, no st elevations or depressions, t waves nml except lead III, v2, v3 08/01/18 10:28 Laboratory Tests 08/01/18 08/01/18 09:35 10:00 WBC 4.6 Hgb 13.6 Hct 40.0 Plt Count 285 Urine Blood 1+ H Urine Nitrite Negative Ur Leukocyte Esterase Negative Urine WBC (Auto) 1 Urine RBC (Auto) 2 08/01/18 10:29 CXR no acute cardiopulmonary pathology 08/01/18 11:43 CT head nml 08/01/18 12:09 Laboratory Tests 08/01/18 09:35 BUN 11 Creatinine 0.5 L Creatine Kinase 168 Creatine Kinase Index 0.8 Will discharge to home Pt did have a cough will give Azithromycin to treat possible bronchitis Had a long conversation with this patient re: following up with a primary care physician information provided return precautions given
[2018-08-01 09:48] LABS: BASO % 0.6 % (0-2.0); EOS % 2.3 % (0-4.5); HEMOGLOBIN 13.6 GM/dL (10.7-15.3); LYMPH % 33.3 % (8-40); MCH 31.4 pg (25.7-33.7); MEAN CELL VOLUME 92.3 fl (80-96); MEAN PLT VOLUME 8.3 fl (7.5-11.1); MONO % 5.3 % (3.8-10.2); NEUT % 58.5 % (42.8-82.8); PLATELET COUNT 285 K/MM3 (134-434); RBC 4.34 M/mm3 (3.60-5.2); RDW 13.2 % (11.6-15.6); WHITE BLOOD COUNT 4.6 K/mm3 (4.0-10.0)
[2018-08-01 10:09] LABS: URINE APPEARANCE CLEAR; URINE BILIRUBIN NEGATIVE (<2.0 mg/dL); URINE COLOR LTYELLOW; URINE GLUCOSE (UA) NEGATIVE (NEGATIVE); URINE KETONE NEGATIVE (NEGATIVE); URINE LEUK ESTERASE NEGATIVE (NEGATIVE); URINE NITRITE NEGATIVE (NEGATIVE); URINE PROTEIN NEGATIVE (NEGATIVE); URINE UROBILINOGEN NEGATIVE mg/dL (0.2-1.0)
[2018-08-01] MEDS ORDERED: ACETAMINOPHEN 1000 MG/100 ML VIAL (NON FORMULARY) IVPB ONE (10:25)
[2018-08-01] MEDS ORDERED: SODIUM CHLORIDE 1,000 ML IV STA (10:25)
[2018-08-01 10:26] LABS: URINE BACTERIA RARE /hpf (NONE SEEN); URINE MUCUS RARE
[2018-08-01] MEDS ORDERED: ACETAMINOPHEN INJECTION 100 ML IVPB ONE (10:57)
[2018-08-01 11:52] LABS: ALBUMIN 4.4 g/dl (3.4-5.0); ALK PHOS 102 U/L (45-117); ANION GAP 8 MMOL/L (8-16); BILIRUBIN,TOTAL 0.4 mg/dL (0.2-1); BLOOD UREA NITROGEN 11 mg/dL (7-18); CALCIUM 9.7 mg/dL (8.5-10.1); CHLORIDE 106 mmol/L (98-107); CO2 28 mmol/L (21-32); CREATININE 0.5 mg/dL (0.55-1.3); GLUCOSE,RANDOM 86 mg/dL (74-106); POTASSIUM 4.5 mmol/L (3.5-5.1); SGOT/AST 34 U/L (15-37); SGPT/ALT 48 U/L (13-61); SODIUM 142 mmol/L (136-145); TOT PROT 8.2 g/dl (6.4-8.2)
[2018-08-01 12:11] VITALS: BP 117/73; PULSE 65; TEMP 99.2
--- NOTE | 2018-08-01 12:17 | EKG ---
Test Reason : Blood Pressure : / mmHG Vent. Rate : 073 BPM Atrial Rate : 073 BPM P-R Int : 152 ms QRS Dur : 082 ms QT Int : 406 ms P-R-T Axes : 012 -02 010 degrees QTc Int : 447 ms POOR DATA QUALITY, INTERPRETATION MAY BE ADVERSELY AFFECTED SINUS RHYTHM WITH PREMATURE ATRIAL COMPLEXES OTHERWISE NORMAL ECG WHEN COMPARED WITH ECG OF 16-APR-2012 10:52, PREMATURE ATRIAL COMPLEXES ARE NOW PRESENT T WAVE INVERSION NOW EVIDENT IN ANTERIOR LEADS Confirmed by MIKE PEPE MD ([id number]) on 08/01/2018 12:17:27 PM Referred By: Confirmed By:MIKE PEPE MD
== END 2018-08-01 13:43 | disposition home or self-care (01) ==
LOC: SUPCPDRO 07:42 → JER 07:42
PROC: 3E033NZ Introduction of Analgesics, Hypnotics, Sedatives into Peripheral Vein, Percutaneous Approach (ICD-10-PCS; principal; 2018-08-01)
DX: R07.89 Other chest pain (principal); R51 Headache; I10 Essential (primary) hypertension; Z91.013 Allergy to seafood
CPT/HCPCS: 36415; 70450-TC; 71046-TC-FY; 72125-TC; 80053; 81003; 81015; 82550; 82553; 84484; 85025; 87086; 93005; 93010; 96374; 99283-25; J0131; J7030

== ENCOUNTER 2018-11-10 13:15 | Emergency (ER) | payer OTHER ==
[2018-11-10 13:26] VITALS: BP 154/89; PULSE 81; TEMP 98.8; BMI 27.3
[2018-11-10 15:42] LABS: URINE APPEARANCE CLEAR; URINE BILIRUBIN NEGATIVE (<2.0 mg/dL); URINE COLOR LTYELLOW; URINE GLUCOSE (UA) NEGATIVE (NEGATIVE); URINE KETONE NEGATIVE (NEGATIVE); URINE LEUK ESTERASE NEGATIVE (NEGATIVE); URINE NITRITE NEGATIVE (NEGATIVE); URINE PROTEIN NEGATIVE (NEGATIVE); URINE UROBILINOGEN NEGATIVE mg/dL (0.2-1.0)
--- NOTE | 2018-11-10 15:51 | PDOC ---
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 Patient denies nausea or vomiting. Patient denies fever or back pains. Patient denies any other symptoms Past History - Past Medical History Allergies/Adverse Reactions: Allergies Allergy/AdvReac Type Severity Reaction Status Date / Time shellfish derived Allergy Unknown Verified 07/10/17 04:15 shellfish Allergy Unknown Uncoded 07/10/17 01:29 Home Medications: Ambulatory Orders Nitrofurantoin Monohyd/M-Cryst [Macrobid -] 100 mg PO BID #14 capsule 11/10/18 COPD: No DVT: No Dementia: No GI Disorders: Yes (status post bile duct stent for retained stone, in April 2012) HTN: Yes Hypercholesterolemia: Yes (??) - Surgical History Cholecystectomy: Yes (4 years ago) - Immunization History Immunization Up to Date: No - Suicide/Smoking/Psychosocial Hx Smoking Status: No Smoking History: Never smoked Have you smoked in the past 12 months: No Number of Cigarettes Smoked Daily: 0 Hx Alcohol Use: No Drug/Substance Use Hx: No Substance Use Type: None Hx Substance Use Treatment: No Review of Systems - Review of Systems Able to Perform ROS?: Yes Is the patient limited Indonesian proficient: No Constitutional: No: Chills, Fever, Malaise, Weakness HEENTM: No: Symptoms Reported Respiratory: No: Symptoms reported Cardiac (ROS): No: Symptoms Reported ABD/GI: No: Nausea, Vomiting : Yes: See HPI, Burning, Dysuria, Frequency, Urgency. No: Discharge, Flank Pain, Hematuria Musculoskeletal: No: Back Pain All Other Systems: Reviewed and Negative *Physical Exam - Vital Signs Last Vital Signs Temp Pulse Resp BP Pulse Ox 98.8 F 81 18 154/89 98 11/10/18 13:24 11/10/18 13:24 11/10/18 13:24 11/10/18 13:24 11/10/18 13:24 - Physical Exam General Appearance: Yes: Nourished, Appropriately Dressed. No: Apparent Distress HEENT: positive: Normal ENT Inspection Neck: positive: Supple Respiratory/Chest: positive: Lungs Clear. negative: Respiratory Distress, Accessory Muscle Use Cardiovascular: positive: Regular Rhythm, Regular Rate Gastrointestinal/Abdominal: positive: Flat, Soft. negative: Tender Musculoskeletal: negative: CVA Tenderness Extremity: positive: Normal Inspection Integumentary: positive: Normal Color Neurologic: positive: Fully Oriented, Alert Moderate Sedation - Procedure Monitoring Vital Signs: Procedure Monitoring Vital Signs Temperature 98.8 F 11/10/18 13:24 Pulse Rate 81 11/10/18 13:24 Respiratory Rate 18 11/10/18 13:24 Blood Pressure 154/89 11/10/18 13:24 O2 Sat by Pulse Oximetry (%) 98 11/10/18 13:24 ED Treatment Course - ADDITIONAL ORDERS Additional order review: Laboratory Results 11/10/18 15:33 Urine Color Ltyellow Urine Appearance Clear Urine pH 7.0 Ur Specific [place] 1.015 Urine Protein Negative Urine Glucose (UA) Negative Urine Ketones Negative Urine Blood Negative Urine Nitrite Negative Urine Bilirubin Negative Urine Urobilinogen Negative Ur Leukocyte Esterase Negative Medical Decision Making - Medical Decision Making 11/10/18 16:01 Patient with no significant past medication present with complaint of one-week history of urinary frequency, dysuria, urgency and burning with urination. Patient denies nausea or vomiting. Patient denies fever or back pains. Physical exam unremarkable. UA shows no acute WBCs or pathology. Patient be started on macrobid antibiotics with PCP follow-up pending urine culture given complaint of symptoms over week. *DC/Admit/Observation/Transfer Diagnosis at time of Disposition: Urinary tract infection Qualifiers: Urinary tract infection type: acute cystitis Hematuria presence: without hematuria Qualified Code(s): N30.00 - Acute cystitis without hematuria - Discharge Dispostion Disposition: HOME Condition at time of disposition: Stable Decision to Admit order: No - Prescriptions Prescriptions: Nitrofurantoin Monohyd/M-Cryst [Macrobid -] 100 mg PO BID #14 capsule - Referrals Referrals: Alexx Burton MD [Staff Physician] - - Patient Instructions Printed Discharge Instructions: Urinary Tract Infection Additional Instructions: Take medications as prescribed. Follow-up with [facility]. You'll be contacted with urine culture results. Print Language: SINHALA - Post Discharge Activity
== END 2018-11-10 16:06 | disposition home or self-care (01) ==
LOC: JERFT 13:15
DX: N30.00 Acute cystitis without hematuria (principal); I10 Essential (primary) hypertension
CPT/HCPCS: 81003; 87086; 99281-25

== ENCOUNTER 2018-12-24 16:20 | Emergency (ER) | payer OTHER ==
[2018-12-24 16:26] VITALS: BP 147/73; PULSE 78; TEMP 98.6; BMI 25.4
--- NOTE | 2018-12-24 17:09 | PDOC ---
History of Present Illness - General Chief Complaint: Rash Stated Complaint: itchy skin Time Seen by Provider: 12/24/18 16:27 History Source: Patient Exam Limitations: No Limitations - History of Present Illness Initial Comments: 12/24/18 17:08 HISTORY OF PRESENT ILLNESS: 58-year-old woman denies medical history presents emergency department for evaluation of body rash which she states began itching around her neck 8 days ago. Reports the rash is been constant and consistent for many months now but has not caused her any problems. She denies any shortness of breath, fevers, sore throat or other infectious symptoms. No recent travel or sick contacts. PAST MEDICAL HISTORY: Denies past medical history SURGICAL HISTORY: Denies ALLERGIES: Shellfish REVIEW OF SYSTEMS General/Constitutional: Denies fever or chills. Denies weakness, weight change. HEENT: Denies change in vision. Denies ear pain or discharge. Denies sore throat. Cardiovascular: Denies chest pain or shortness of breath. Respiratory: Denies cough, wheezing, or hemoptysis. Gastrointestinal: Denies nausea, vomiting, diarrhea or constipation. Denies rectal bleeding. Genitourinary: Denies dysuria, frequency, or change in urination. Musculoskeletal: Denies joint or muscle swelling or pain. Denies neck or back pain. Skin and breasts:see HPI Neurologic: Denies headache, vertigo, loss of consciousness, or loss of sensation. Psychiatric: Denies depression or anxiety. Endocrine: Denies increased thirst. Denies abnormal weight change. Hematologic/Lymphatic: Denies anemia, easy bleeding, or history of blood clots. Allergic/Immunologic: Denies hives or skin allergy. Denies latex allergy. PHYSICAL EXAM General Appearance: Well-appearing, appropriately dressed. No apparent distress , no intoxication. HEENT: EOMI, PERRLA, normal ENT inspection, normal voice, TMs normal, pharynx normal. No conjunctival pallor. No photophobia, scleral icterus. Neck: Supple. Trachea midline. No tenderness, rigidity, carotid bruit, stridor , lymphadenopathy, or thyromegaly. Respiratory/Chest: Lungs CTAB. No shortness of breath, chest tenderness, respiratory distress, accessory muscle use. No crackles, rales, rhonchi, stridor , wheezing, dullness Cardiovascular: RRR. S1, S2. No JVD, murmur, bradycardia, tachycardia. Vascular Pulses: Dorsalis-Pedis (R): 2+, Dorsalis-Pedis (L): 2+ Gastrointestinal/Abdominal: Normal bowel sounds. Abdomen soft, non-distended. No tenderness or rebound tenderness. No organomegaly, pulsatile mass, guarding, hernia, hepatomegaly, splenomegaly. Lymphatic: No adenopathy, tenderness. Musculoskeletal/Extremities: Normal inspection. FROM of all extremities, normal capillary refill. Pelvis Stable. No CVA tenderness. No tenderness to extremities, pedal edema, swelling, erythema or deformity. Integumentary: Fine reddened rash present at the base of her follicles along the back, abdomen, upper arms and neck. 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 Fully oriented, alert. Appropriate mood/affect. Motor strength 5/5. No appreciable EOM palsy, facial droop or sensory deficit. Past History - Past Medical History Allergies/Adverse Reactions: Allergies Allergy/AdvReac Type Severity Reaction Status Date / Time shellfish derived Allergy Unknown Verified 12/24/18 16:26 shellfish Allergy Unknown Uncoded 12/24/18 16:26 Home Medications: Ambulatory Orders NK [No Known Home Medication] 12/24/18 COPD: No DVT: No Dementia: No GI Disorders: Yes (status post bile duct stent for retained stone, in April 2012) HTN: Yes Hypercholesterolemia: Yes (??) - Surgical History Cholecystectomy: Yes (4 years ago) - Immunization History Immunization Up to Date: No - Suicide/Smoking/Psychosocial Hx Smoking Status: No Smoking History: Never smoked Have you smoked in the past 12 months: No Number of Cigarettes Smoked Daily: 0 Hx Alcohol Use: No Drug/Substance Use Hx: No Substance Use Type: None Hx Substance Use Treatment: No *Physical Exam - Vital Signs Last Vital Signs Temp Pulse Resp BP Pulse Ox 98.6 F 78 18 147/73 99 12/24/18 16:23 12/24/18 16:23 12/24/18 16:23 12/24/18 16:23 12/24/18 16:23 Moderate Sedation - Procedure Monitoring Vital Signs: Procedure Monitoring Vital Signs Temperature 98.6 F 12/24/18 16:23 Pulse Rate 78 12/24/18 16:23 Respiratory Rate 18 12/24/18 16:23 Blood Pressure 147/73 12/24/18 16:23 O2 Sat by Pulse Oximetry (%) 99 12/24/18 16:23 Medical Decision Making - Medical Decision Making 12/24/18 17:09 A/P: 58-year-old woman with keratosis pilaris Benadryl 25 mg orally per patient request. Discharge home *DC/Admit/Observation/Transfer Diagnosis at time of Disposition: Keratosis pilaris - Discharge Dispostion Disposition: HOME Condition at time of disposition: Stable Decision to Admit order: No - Referrals Referrals: Khushboo Mulligan MD [Staff Physician] - - Patient Instructions Additional Instructions: Rest, keep cool and dry- avoid strenuous activity or hot /humid environments Less hot showers, no abrasive soaps May use heavy creams like Eucerin or Cetaphil to keep skin moist May apply Aveeno, calamine lotion, [id number] hydrocortisone creams as needed for symptoms May use Benadryl at night for antihistamine, Zyrtec/ Lucero or Claritin for daytime antihistamine use to help with itching May use [id number] hydrocortisone cream on all areas except face Followup with PMD in one week if no resolution Make appointment with film or videotape editor for evaluation when possible [place], mantngase fresco y seco, evite las actividades agotadoras o los ambientes clidos / hmedos. Duchas menos calientes, sin jabones abrasivos. Puede usar cremas pesadas nella Eucerin o Cetaphil para mantener la piel hmeda Puede aplicar Aveeno, locin de calamina y cremas de hidrocortisona de venta kaitlin segn sea necesario para los sntomas. Puede usar Benadryl por la noche para el antihistamnico, Zyrtec / Lucero o Claritin para el uso de antihistamnicos jorge el da para ayudar a la picazn Puede usar crema de hidrocortisona de venta kaitlin en todas las reas, excepto la bilyl Seguimiento con PMD en benjamin semana si no hay resolucin Dillan benjamin zaira con el dermatlogo para osorio evaluacin cuando sea posible - Post Discharge Activity
[2018-12-24] MEDS ORDERED: diphenhydrAMINE HCL 25 MG CAPSULE (FP) PO ONE ×2 (17:10→17:13)
== END 2018-12-24 17:14 | disposition home or self-care (01) ==
LOC: JERFT 16:20
DX: L85.8 Other specified epidermal thickening (principal)
CPT/HCPCS: 99281-25

== ENCOUNTER 2019-04-26 06:16 | Emergency (ER) | payer OTHER | END 2019-04-26 12:34 | disposition home or self-care (01) | LOC: JER 06:16 ==

== ENCOUNTER 2025-03-01 08:39 | Emergency (ER) | payer OTHER ==
[2025-03-01 08:47] VITALS: BP 164/91; PULSE 92; RESP 16; TEMP 98.9; BMI 29.2
[2025-03-01] MEDS ORDERED: MAG HYDROX/AL HYDROX/SIMETH 30 ML UNIT-DOSE CUP ONE (09:07)
[2025-03-01] MEDS ORDERED: FAMOTIDINE 20 MG TABLET ONE ×2 (09:07→09:09)
[2025-03-01] MEDS: MAG HYDROX/AL HYDROX/SIMETH -MYLANTA- ORAL SUSPENSION PO ONE (09:10)
[2025-03-01] MEDS: FAMOTIDINE 20 MG TABLET PO ONE (09:10)
[2025-03-01 09:14] LABS: ABSOLUTE IMMATURE GRANULOCYTES 0.01 x10^3/uL (0.0-0.031); BASOPHILS # 0.03 x10^3/uL (0.01-0.08); EOSINOPHIL % 2.9 % (0.7-5.8); EOSINOPHILS # 0.14 x10^3/uL (0.04-0.36); HEMATOCRIT 42.9 % (34.1-44.9); MCHC 32.6 g/dl (32.2-35.5); MEAN CELL VOLUME 93.9 fl (79.4-94.8); MEAN PLT VOLUME 9.5 fl (9.4-12.3); MONOCYTE # 0.27 x10^3/uL (0.24-0.86); MONOCYTE % 5.6 % (4.7-12.5); PLATELET COUNT 283 x10^3/uL (182-369); RDW 12.3 % (12.4-16.4)
[2025-03-01 09:34] LABS: POTASSIUM 3.3 mmol/L (3.5-5.1)
[2025-03-01 09:37] LABS: CALCIUM 9.7 mg/dL (8.5-10.1)
[2025-03-01 09:38] LABS: ALBUMIN 4.3 g/dl (3.4-5.0); BLOOD UREA NITROGEN 15.1 mg/dL (7-18)
[2025-03-01 09:41] LABS: CREATININE 0.6 mg/dL (0.55-1.3)
[2025-03-01 09:42] LABS: BILIRUBIN,TOTAL 0.7 mg/dL (0.2-1); TOT PROT 7.8 g/dl (6.4-8.2)
[2025-03-01 09:45] LABS: EPI CELLS 4 /uL (0-25.1); HYALINE CASTS 0 /uL (0-3.1); PH,URINE 7.5 (5.0-8.0); URINE APPEARANCE CLEAR; URINE BACTERIA 238 /uL (0-1359); URINE BILIRUBIN NEGATIVE (NEGATIVE); URINE COLOR YELLOW; URINE GLUCOSE (UA) NEGATIVE (NEGATIVE); URINE KETONE NEGATIVE (NEGATIVE); URINE LEUK ESTERASE TRACE (NEGATIVE); URINE NITRITE NEGATIVE (NEGATIVE); URINE PROTEIN NEGATIVE (NEGATIVE); URINE RBC 74 /uL (0-23.9); URINE WBC 10 /uL (0-25.8)
== END 2025-03-01 11:52 | disposition home or self-care (01) ==
LOC: JER 08:39
DX: K29.70 Gastritis, unspecified, without bleeding (principal); R10.13 Epigastric pain; R31.29 Other microscopic hematuria
CPT/HCPCS: 36415; 74176-TC; 76705-TC; 80053; 81003; 83690; 85025; 87086; 87186; 99284-25